=== PATIENT | female | born 1990 | race Caucasian/White ===

== ENCOUNTER 2017-08-29 15:11 | Emergency (ER) | payer SELFPAY ==
[~2017-08-29] VITALS: Ht 157.5 cm; Wt 56.0 kg
[2017-08-29 15:27] VITALS: BP 111/59; PULSE 110; RESP 17; TEMP 97.6; O2SAT 100
[2017-08-29] MEDS ORDERED: KETOROLAC TROMETHAMINE 30 MG/ML (IVP) VIAL IVP ONE (17:15)
[2017-08-29] MEDS ORDERED: LIDOCAINE HCL 1% 50 ML VIAL INFIL ONE (17:15)
[2017-08-29] MEDS ORDERED: CLINDAMYCIN INJ 900 MG in SODIUM CHLORIDE 0.9% INJ 100 ML IV ONE (17:15)
[2017-08-29 18:07] LABS: AUTOMATED NEUTROPHIL # 10.5 TH/MM3 (1.8-7.7); BASOPHIL % 0.2 % (0.0-2.0); EOSINOPHIL % 0.4 % (0.0-4.0); HEMATOCRIT 35.7 % (35.0-46.0); LYMPH % 10.2 % (9.0-44.0); LYMPHOCYTE # 1.3 TH/MM3 (1.0-4.8); MEAN CELL VOLUME 81.7 FL (80.0-100.0); MEAN CORPUSCULAR HEMOGLOBIN 27.5 PG (27.0-34.0); MEAN CORPUSCULAR HGB CONC 33.7 % (32.0-36.0); MEAN PLATELET VOLUME 8.6 FL (7.0-11.0); MONO % 4.2 % (0.0-8.0); MONOCYTE # 0.5 TH/MM3 (0-0.9); PLATELET COUNT 284 TH/MM3 (150-450); RED BLOOD COUNT 4.37 MIL/MM3 (4.00-5.30); RED CELL DISTRIBUTION WIDTH 15.9 % (11.6-17.2); WHITE BLOOD COUNT 12.3 TH/MM3 (4.0-11.0)
--- NOTE | 2017-08-29 18:10 | PD ---
HPI Chief Complaint: Skin Problem Time Seen by Provider: 16:33 Travel History International Travel<30 days: No Contact w/Intl Traveler<30days: No Traveled to known affect area: No History of Present Illness HPI 26-year-old female presents the ED for evaluation of 3 day history of reddened, painful bumps of the left aspect of the buttocks. Gradual onset. States the pain is 10/10, worsened by touch. States the wound started out as pustules and then grew. Patient can identify no injury to the area. She denies history of MRSA, fever, chills, nausea, vomiting. No treatment attempted at home. PFSH Past Medical History ?: Not Social History Alcohol Use: Yes Tobacco Use: Yes Substance Use: No Allergies-Medications (Allergen,Severity, Reaction): Coded Allergies: No Known Allergies (Verified Allergy, Unknown, 08/29/17) Reported Meds & Prescriptions Reported Meds & Active Scripts Active Ibuprofen 600 Mg Tab 600 Mg PO Q8H PRN Keflex (Cephalexin) 500 Mg Cap 500 Mg PO Q6H 7 Days Bactrim DS (Sulfamethoxazole-Trimethoprim) 800-160 Mg Tab 1 Tab PO BID Review of Systems Except as stated in HPI: all other systems reviewed are Neg Physical Exam Narrative GENERAL: Well-nourished, well-developed white female no acute distress. SKIN: Focused skin assessment warm/dry. SKIN: There is an indurated area in the left buttock which measures about 3 cm in diameter. It is fluctuant. There is pointing but no drainage. There is a zone of inflammation around it but no lymphangitis. SKIN: There is an indurated area in the left which measures about 4 cm in diameter. It is fluctuant but there is no pointing or drainage. There is a zone of inflammation around it but no lymphangitis. HEAD: Normocephalic. EYES: No scleral icterus. No injection or drainage. NECK: Supple, trachea midline. No JVD or lymphadenopathy. CARDIOVASCULAR: Regular rate and rhythm without murmurs, gallops, or rubs. RESPIRATORY: Breath sounds equal bilaterally. No accessory muscle use. GASTROINTESTINAL: Abdomen soft, non-tender, nondistended. MUSCULOSKELETAL: No cyanosis, or edema. BACK: Nontender without obvious deformity. No CVA tenderness. Data Data Last Documented VS Vital Signs Date Time Temp Pulse Resp B/P (MAP) Pulse Ox O2 Delivery O2 Flow Rate FiO2 08/29/17 18:44 100 18 99/56 (70) 98 Room Air 08/29/17 15:27 97.6 Orders Orders Basic Metabolic Panel (Bmp) (08/29/17 17:03) Complete Blood Count With Diff (08/29/17 17:03) Blood Culture (08/29/17 17:03) Wound Culture And Gram Stain (08/29/17 17:03) Iv Access Insert/Monitor (08/29/17 17:03) Ketorolac Inj (Toradol Inj) (08/29/17 17:15) Clindamycin Inj (Cleocin Inj) (08/29/17 17:15) Lidocaine 1% Inj (50 Ml) (Xylocaine 1% I (08/29/17 17:15) Lactic Acid (08/29/17 18:06) Morphine Inj (Morphine Inj) (08/29/17 19:00) Morphine Inj (Morphine Inj) (08/29/17 18:57) Ed Discharge Order (08/29/17 19:16) Labs Laboratory Tests Test 08/29/17 17:40 08/29/17 18:00 White Blood Count 12.3 TH/MM3 Red Blood Count 4.37 MIL/MM3 Hemoglobin 12.0 GM/DL Hematocrit 35.7 % Mean Corpuscular Volume 81.7 FL Mean Corpuscular Hemoglobin 27.5 PG Mean Corpuscular Hemoglobin Concent 33.7 % Red Cell Distribution Width 15.9 % Platelet Count 284 TH/MM3 Mean Platelet Volume 8.6 FL Neutrophils (%) (Auto) 85.0 % Lymphocytes (%) (Auto) 10.2 % Monocytes (%) (Auto) 4.2 % Eosinophils (%) (Auto) 0.4 % Basophils (%) (Auto) 0.2 % Neutrophils # (Auto) 10.5 TH/MM3 Lymphocytes # (Auto) 1.3 TH/MM3 Monocytes # (Auto) 0.5 TH/MM3 Eosinophils # (Auto) 0.0 TH/MM3 Basophils # (Auto) 0.0 TH/MM3 CBC Comment DIFF FINAL Differential Comment Blood Urea Nitrogen 2 MG/DL Creatinine 0.48 MG/DL Random Glucose 75 MG/DL Calcium Level 9.2 MG/DL Sodium Level 138 MEQ/L Potassium Level 4.5 MEQ/L Chloride Level 105 MEQ/L Carbon Dioxide Level 20.6 MEQ/L Anion Gap 12 MEQ/L Estimat Glomerular Filtration Rate 158 ML/MIN Lactic Acid Level 1.9 mmol/L MDM Medical Decision Making Medical Screen Exam Complete: Yes Emergency Medical Condition: Yes Differential Diagnosis Abscess versus cellulitis versus sepsis versus other Narrative Course 26-year-old female presents the ED for evaluation of 3 day history of reddened, painful bumps of the left aspect of the buttocks. States the wound started out as pustules and then grew. She denies history of MRSA, IVDA, fever, chills, nausea, vomiting. Vitals reviewed. On physical exam patient has 2 large abscesses of the left buttock and several small pustules distributed over the skin. Abscess I&D 2 was performed. Please see my procedure note for details. Patient was ministered 1 L normal saline, 30 mg Toradol, 900 mg clindamycin and 2 mg morphine IV. Lab work reveals mild leukocytosis, no lactic acidosis noted. Patient was provided detailed wound care instructions. She states that she does not have money for antibiotics and has no insurance that will work in the state. She was provided prescription for Bactrim and Keflex, instructed to fill them at [facility]. She is instructed to return to the ED in 2 days for packing removal and wound recheck, sooner if symptoms worsen. She indicated understanding of these instructions and is agreeable to care plan. The patient is stable and discharged home. Procedures Procedure Narrative INCISION AND DRAINAGE OF ABSCESS: The area was prepped and was sterilely draped. A subcutaneous wheal of 1 % Xylocaine with a total number 6 mL was used to anesthetize the area properly. A number 11 scalpel was used to make a 1 -cm incision across the area of the abscess. The abscess was drained, complex loculations were broken down, and irrigated with normal saline. Cultures were obtained. Half inch iodoform packing was placed in the wound. Sterile dressing applied. Patient advised to have packing removed in two days. INCISION AND DRAINAGE OF ABSCESS: The area was prepped and was sterilely draped. A subcutaneous wheal of 1 % Xylocaine with a total number 3 mL was used to anesthetize the area properly. A number 11 scalpel was used to make a 1 -cm incision across the area of the abscess. The abscess was drained, complex loculations were broken down, and irrigated with normal saline. Cultures were obtained. Past inch iodoform packing was placed in the wound. Sterile dressing applied. Patient advised to have packing removed in two days. Diagnosis Primary Impression: Abscess of buttock, left Referrals: Primary Care Physician Additional Instructions: Keep the wound clean, dry and covered. Begin antibiotics tomorrow and take them as they are prescribed. 600mg ibuprofen up to 3 times per day as needed for pain. Warm compresses applied to the area will help to allow drainage. Return to the ED in 2 days for packing removal and wound recheck. Come back sooner if symptoms worsen (fever, nausea.) Med/Other Pt SpecificInfo: Prescription(s) given Scripts Ibuprofen (Ibuprofen) 600 Mg Tab 600 MG PO Q8H Y for PAIN, #15 TAB 0 Refills Prov: Dash Graf MD 08/29/17 Cephalexin (Keflex) 500 Mg Cap 500 MG PO Q6H for Infection for 7 Days, #28 CAP 0 Refills Prov: Dash Graf MD 08/29/17 Sulfamethoxazole-Trimethoprim (Bactrim DS) 800-160 Mg Tab 1 TAB PO BID for Infection, #14 TAB 0 Refills Prov: Dash Graf MD 08/29/17 Disposition: 01 DISCHARGE HOME Condition: Stable Amanda Lazcano August 29, 2017 18:10
[2017-08-29 18:42] LABS: BICARBONATE 20.6 MEQ/L (21.0-32.0); CALCIUM 9.2 MG/DL (8.5-10.1); CREATININE 0.48 MG/DL (0.50-1.00)
[2017-08-29 18:44] VITALS: BP 99/56; PULSE 100; RESP 18; O2SAT 98
[2017-08-29] MEDS ORDERED: MORPHINE SULFATE 4 MG/ML INJ ONE (18:57)
[2017-08-29] MEDS ORDERED: MORPHINE SULFATE 2 MG/ML SYRINGE IV PUSH ONE (19:00)
[2017-08-29] MEDS ORDERED: CEPH-460 PO (19:12)
[2017-08-29] MEDS ORDERED: BACT800T5 PO (19:12)
[2017-08-29] MEDS ORDERED: IBUP-232 PO (19:12)
== END 2017-08-29 19:45 | disposition home or self-care (01) ==
LOC: NEPD 15:11
DX: L02.31 Cutaneous abscess of buttock (principal); Z72.0 Tobacco use
CPT/HCPCS: 10061; 80048; 83605; 85025; 86403; 87040; 87070; 87147; 87186; 96365; 96375; 99284; J1885; J2270

== ENCOUNTER 2017-08-30 16:10 | Emergency (ER) | payer SELFPAY ==
[~2017-08-30 16:10] MED LIST: BACT800T5 PO; CEPH-460 PO; IBUP-232 PO
[2017-08-30 16:20] VITALS: BP 128/62; PULSE 109; RESP 20; TEMP 98.1; O2SAT 99
--- NOTE | 2017-08-30 16:47 | PD ---
HPI Chief Complaint: Skin Problem Time Seen by Provider: 16:41 Travel History International Travel<30 days: No Contact w/Intl Traveler<30days: No Traveled to known affect area: No History of Present Illness HPI 26-year-old female presents emergency department with ongoing pain in her left medial buttock status post abscess drainage 2 yesterday. Patient states she did not fill her prescriptions. She is requesting that the packing be removed as it is "painful". She denies fever, chills, or other symptoms. Patient has not change the outer dressing since yesterday. Pain is rated as a 10 out of 10. She has no known drug allergies. PFSH Past Medical History ?: Social History Alcohol Use: Yes Tobacco Use: Yes Substance Use: No Allergies-Medications (Allergen,Severity, Reaction): Coded Allergies: No Known Allergies (Verified Allergy, Unknown, 08/29/17) Reported Meds & Prescriptions Reported Meds & Active Scripts Active Ibuprofen 600 Mg Tab 600 Mg PO Q8H PRN Keflex (Cephalexin) 500 Mg Cap 500 Mg PO Q6H 7 Days Bactrim DS (Sulfamethoxazole-Trimethoprim) 800-160 Mg Tab 1 Tab PO BID Review of Systems Except as stated in HPI: all other systems reviewed are Neg General / Constitutional: No: Fever Eyes: No: Visual changes HENT: No: Headaches Cardiovascular: No: Chest Pain or Discomfort Respiratory: No: Shortness of Breath Gastrointestinal: No: Abdominal Pain Genitourinary: No: Dysuria Musculoskeletal: No: Pain Skin: Positive Lesions (See history of present illness.), No Rash Neurologic: No: Weakness Psychiatric: No: Depression Endocrine: No: Polydipsia Hematologic/Lymphatic: No: Easy Bruising Physical Exam Narrative GENERAL: Patient appears in mild to moderate distress. SKIN: Warm and dry. Normal color. Normal turgor. Wound sites appear to be improving with decreased erythema, induration, and minimal bloody drainage. Areas are redressed without removal of packing. HEAD: Atraumatic. Normocephalic. EYES: Pupils equal and round. No scleral icterus. No injection or drainage. ENT: No nasal bleeding or discharge. Mucous membranes pink and moist. Pharynx is clear. Airways patent. NECK: Trachea midline. Supple. CARDIOVASCULAR: Regular rate and rhythm. RESPIRATORY: No accessory muscle use. Clear to auscultation. Breath sounds equal bilaterally. MUSCULOSKELETAL: Extremities without clubbing, cyanosis, or edema. No obvious deformities. NEUROLOGICAL: Awake and alert. No obvious cranial nerve deficits. Motor grossly within normal limits. Five out of 5 muscle strength in the arms and legs. Normal speech. PSYCHIATRIC: Appropriate mood and affect; insight and judgment normal. Data Data Last Documented VS Vital Signs Date Time Temp Pulse Resp B/P (MAP) Pulse Ox O2 Delivery O2 Flow Rate FiO2 08/30/17 16:20 98.1 109 20 128/62 (84) 99 MDM Medical Decision Making Medical Screen Exam Complete: Yes Emergency Medical Condition: Yes Medical Record Reviewed: Yes Differential Diagnosis Cellulitis. Abscess. I&D. Wound check. Narrative Course Packing is to remain in place until tomorrow. Patient is to cook pickled meat her prescriptions as discussed. Patient can take 8 [id number] ibuprofen, in addition to 2 extra strength Tylenol every 8 hours for pain. Recommend hot compresses or hot shower. Follow-up tomorrow for recheck and packing removal. Diagnosis Primary Impression: Abscess re-check Patient Instructions: Abscess Incision and Drainage (DC), General Instructions Additional Instructions: Packing is to remain in place until tomorrow. Patient is to cook pickled meat her prescriptions as discussed. Patient can take 8 [id number] ibuprofen, in addition to 2 extra strength Tylenol every 8 hours for pain. Recommend hot compresses or hot shower. Follow-up tomorrow for recheck and packing removal. Med/Other Pt SpecificInfo: No Change to Meds Disposition: 01 DISCHARGE HOME Condition: Stable Davin Ramos August 30, 2017 16:47
[2017-08-30] MEDS ORDERED: KETOROLAC TROMETHAMINE 60 MG/2 ML (IM) VIAL IM ONE (17:15)
== END 2017-08-30 18:55 | disposition home or self-care (01) ==
LOC: NEPD 16:10
DX: L02.31 Cutaneous abscess of buttock (principal)
CPT/HCPCS: 96372; 99281; J1885

== ENCOUNTER 2017-08-31 21:33 | Emergency (ER) | payer SELFPAY ==
[~2017-08-31] VITALS: Ht 157.5 cm; Wt 60.0 kg
[2017-08-31 21:57] VITALS: BP 112/56; PULSE 107; RESP 18; TEMP 97.8; O2SAT 100
--- NOTE | 2017-09-01 00:35 | PD ---
HPI Chief Complaint: Skin Problem Time Seen by Provider: 00:20 Travel History International Travel<30 days: No Contact w/Intl Traveler<30days: No Traveled to known affect area: No History of Present Illness HPI 26-year-old white female presents emergency department for evaluation of a abscess to left buttocks. She had packing placed 2 days ago.. She denies any fever chills. She states that she has been taking her antibiotics. PFSH Past Medical History Tetanus Vaccination: < 5 Years Social History Alcohol Use: Yes Tobacco Use: Yes Substance Use: No Allergies-Medications (Allergen,Severity, Reaction): Coded Allergies: No Known Allergies (Verified Allergy, Unknown, 08/31/17) Reported Meds & Prescriptions Reported Meds & Active Scripts Active Ibuprofen 600 Mg Tab 600 Mg PO Q8H PRN Keflex (Cephalexin) 500 Mg Cap 500 Mg PO Q6H 7 Days Bactrim DS (Sulfamethoxazole-Trimethoprim) 800-160 Mg Tab 1 Tab PO BID Review of Systems Except as stated in HPI: all other systems reviewed are Neg Physical Exam Narrative GENERAL: This is a well-nourished, well-developed patient, in no apparent distress. Nurses present during the history, exam and discharge. SKIN: Patient has a resolving abscess to the left buttocks. Packing in place. HEAD: Atraumatic. Normocephalic. EYES: PERRL, EOMI, no discharge or injection. No scleral icterus. EARS: Clear NOSE: Nasal turbinates appear normal. THROAT: Mucosa pink and moist. Airway patent. NECK: Trachea midline. supple, moves head freely. LUNGS: Clear to auscultation. CV: Regular in rhythm. ABDOMEN: Soft nontender. EXT: No clubbing cyanosis or edema. Data Data Last Documented VS Vital Signs Date Time Temp Pulse Resp B/P (MAP) Pulse Ox O2 Delivery O2 Flow Rate FiO2 08/31/17 21:57 97.8 107 18 112/56 (74) 100 Orders Orders Ed Discharge Order (09/01/17 00:31) MDM Medical Decision Making Medical Screen Exam Complete: Yes Emergency Medical Condition: Yes Medical Record Reviewed: Yes Differential Diagnosis MDM: High Differential diagnoses: Abscess, folliculitis, cellulitis, lymphangitis, abrasion, contact dermatitis Narrative Course Patient is insistent on having something for pain before the packing is removed. She will be given an injection of lidocaine. The skin is prepped with wound cleanser. The patient is given 2 injections of 1 % lidocaine locally. The packing is removed without incidence. A clean dressing is applied by the nursing staff. Diagnosis Primary Impression: Packing removal Additional Impression: Abscess packing removal Patient Instructions: General Instructions Additional Instructions: Rest. Elevation. keep clean and dry. Sitz bath's twice daily. Daily wound care with soap, water and Neosporin. Continue your course of antibiotics to complete. Follow-up with a primary care doctor in one week. Return to the ER for any problems. Med/Other Pt SpecificInfo: No Change to Meds, Wound Care Disposition: 01 DISCHARGE HOME Condition: Stable Faisal Iqbal September 01, 2017 00:35
== END 2017-09-01 01:34 | disposition home or self-care (01) ==
LOC: NEPD 21:33
DX: L02.31 Cutaneous abscess of buttock (principal); Z48.01 Encounter for change or removal of surgical wound dressing
CPT/HCPCS: 99281